=== PATIENT | female | born 2000 | race Caucasian/White ===

== ENCOUNTER 2020-01-23 10:39 | Emergency (ER) | payer SELFPAY ==
--- NOTE | 2020-01-23 11:13 | NUR ---
Patient arrived in police protective custody for a mental health screening. Pt was walking in front [place] traffic [place] [address] [place] of [place]. Pt at first was cooperative and gave a urine sample. Pt then would not allow us to do vital signs, change into a gown, or allow us to draw blood. Pt asked for a cup of water and ice. Pt was given the water and asked nicely if she would change. This RN waited outside room and patient sat in the chair in the room drinking her water. This RN notified the physician and [facility] was called at this time. Information was given to Ernie and he wanted to speak to one of the officers. He is currently getting info from them about the situation. Pt stated if she was given food, then she would let us draw her blood. KELSY Shafer сергей her blood at this time.
--- NOTE | 2020-01-23 11:18 | ED Psychosocial ---
General Stated Complaint: PSYCH EVAL Source: patient, police Exam Limitations: other (mental health) (SHIRLEY LUGO DO) History of Present Illness Date Seen by Provider: January 23, 2020 Time Seen by Provider: 11:15 Initial Comments brought in by PD because they received calls that she was walking in front of cars. They relay that she has Mental Health history. Not under arrest, but under police protective custody on arrival (SHIRLEY LUGO DO) Allergies and Home Medications Allergies Coded Allergies: No Allergy Information Available (Unverified , 01/23/20) Pt will not provide any information. Pt is not being cooperative Patient Home Medication List Home Medication List Reviewed: Yes (DANIEL LUGOEN Kedar LITTLE) Review of Systems Constitutional: no symptoms reported Respiratory: no symptoms reported Cardiovascular: no symptoms reported Psychiatric/Neurological: Emotional Problems, Other (mental health history) (SHIRLEY LUGO DO) Past Tajtfwh-[id number]-Cfmmhx Hx Past Med/Social Hx: Reviewed Nursing Past Med/Soc Hx (SHIRLEY LUGO DO) Patient Social History Recent Foreign Travel: No Contact w/Someone Who Travel: No (DANIEL LUGOEN Kedar LITTLE) Physical Exam Vital Signs - First Documented 01/23/20 12:32 Temp 36.7 Pulse 80 Resp 16 B/P (MAP) 98/43 (61) Pulse Ox 97 O2 Delivery Room Air (REYMUNDO FELIPE MD) Capillary Refill : (SHIRLEY LUGO DO) Height, Weight, BMI Height: '" Weight: lbs. oz. kg; BMI Method: General Appearance: WD/WN, no apparent distress HEENT: normal ENT inspection Respiratory: chest non-tender, lungs clear Cardiovascular: regular rate, rhythm, no JVD Gastrointestinal: non tender, soft Extremities: non-tender, no pedal edema Neurologic/Psychiatric: alert, normal mood/affect Behavior/Eye Contact: refused to answer, uncooperative Thoughts/Hallucinations: no apparent hallucination, flight of ideas, incoh erent, paranoid (MARIASTDANIEL CHRISTINEEN L ) Progress/Results/Core Measures Results/Orders Lab Results Laboratory Tests Test 01/23/20 10:48 01/23/20 11:14 Range/Units Urine Color YELLOW Urine Clarity CLEAR Urine pH 6.0 5-9 Urine Specific [place] >1.030 1.016-1.022 Urine Protein TRACE H NEGATIVE Urine Glucose (UA) NEGATIVE NEGATIVE Urine Ketones NEGATIVE NEGATIVE Urine Nitrite NEGATIVE NEGATIVE Urine Bilirubin NEGATIVE NEGATIVE Urine Urobilinogen 0.2 < = 1.0 MG/DL Urine Leukocyte Esterase NEGATIVE NEGATIVE Urine RBC (Auto) 3+ H NEGATIVE Urine RBC 5-10 H /HPF Urine WBC NONE /HPF Urine Squamous Epithelial Cells 10-25 H /HPF Urine Crystals NONE /LPF Urine Bacteria NONE /HPF Urine Casts NONE /LPF Urine Mucus MODERATE H /LPF Urine Culture Indicated NO Urine Test NEGATIVE NEGATIVE Urine Opiates Screen NEGATIVE NEGATIVE Urine Oxycodone Screen NEGATIVE NEGATIVE Urine Methadone Screen NEGATIVE NEGATIVE Urine Propoxyphene Screen NEGATIVE NEGATIVE Urine Barbiturates Screen NEGATIVE NEGATIVE Ur Tricyclic Antidepressants Screen NEGATIVE NEGATIVE Urine Phencyclidine Screen NEGATIVE NEGATIVE Urine Amphetamines Screen NEGATIVE NEGATIVE Urine Methamphetamines Screen NEGATIVE NEGATIVE Urine Benzodiazepines Screen NEGATIVE NEGATIVE Urine Cocaine Screen NEGATIVE NEGATIVE Urine Cannabinoids Screen POSITIVE H NEGATIVE White Blood Count 9.2 4.3-11.0 10^3/uL Red Blood Count 4.40 4.35-5.85 10^6/uL Hemoglobin 13.7 11.5-16.0 G/DL Hematocrit 41 35-52 % Mean Corpuscular Volume 93 80-99 FL Mean Corpuscular Hemoglobin 31 25-34 PG Mean Corpuscular Hemoglobin Concent 34 32-36 G/DL Red Cell Distribution Width 12.8 10.0-14.5 % Platelet Count 334 130-400 10^3/uL Mean Platelet Volume 9.3 7.4-10.4 FL Neutrophils (%) (Auto) 62 42-75 % Lymphocytes (%) (Auto) 29 12-44 % Monocytes (%) (Auto) 7 0-12 % Eosinophils (%) (Auto) 1 0-10 % Basophils (%) (Auto) 1 0-10 % Neutrophils # (Auto) 5.7 1.8-7.8 X 10^3 Lymphocytes # (Auto) 2.7 1.0-4.0 X 10^3 Monocytes # (Auto) 0.7 0.0-1.0 X 10^3 Eosinophils # (Auto) 0.1 0.0-0.3 10^3/uL Basophils # (Auto) 0.1 0.0-0.1 10^3/uL Sodium Level 145 135-145 MMOL/L Potassium Level 4.3 3.6-5.0 MMOL/L Chloride Level 107 98-107 MMOL/L Carbon Dioxide Level 25 21-32 MMOL/L Anion Gap 13 5-14 MMOL/L Blood Urea Nitrogen 9 7-18 MG/DL Creatinine 1.07 0.60-1.30 MG/DL Estimat Glomerular Filtration Rate > 60 BUN/Creatinine Ratio 8 Glucose Level 101 70-105 MG/DL Calcium Level 9.4 8.5-10.1 MG/DL Corrected Calcium 9.0 8.5-10.1 MG/DL Total Bilirubin 0.7 0.1-1.0 MG/DL Aspartate Amino Transf (AST/SGOT) 11 5-34 U/L Alanine Aminotransferase (ALT/SGPT) 13 0-55 U/L Alkaline Phosphatase 78 40-136 U/L Total Protein 7.0 6.4-8.2 GM/DL Albumin 4.5 3.2-4.5 GM/DL (REYMUNDO FELIPE MD) Vital Signs/I&O 01/24/20 09:58 Temp 37.2 Pulse 74 Resp 16 B/P (MAP) 108/62 (77) Pulse Ox 100 O2 Delivery Room Air (REYMUNDO FELIPE MD) Progress Progress Note : Time: 12:07 Progress Note spoke to MH screener (Reymundo) who plans to make pt "InVoluntary" status and will initiate the formalities and assist w getting pt placement. Deemed pt is a threat to herself. Transfer of care to Dr Felipe @ 0600 at shift change (01/24/2020). Pt stable and without incident. Waiting on Inpatient psychiatric placement. (SHIRLEY LUGO DO) Departure Impression Primary Impression: Acute psychosis Additional Impression: Hallucinations Disposition: 65 XFER TO PSYCH HOSP/UNIT Condition: Stable Transfer Transfer Reason: Exceeds level of care Time Spoke to Accepting Phy: 12:[address] Transfer [address] ordered to be admitted and [facility] in [facility]. They've accepted this patient. For transfer Method of Transfer: Law Enforcement (REYMUNDO FELIPE MD) Departure-Patient Inst. Referrals: MARY BARBOSA MD (PCP/Family) Primary Care Physician SHIRLEY LUGO DO January 23, 2020 11:18 REYMUNDO FELIPE MD January 24, 2020 12:17
--- NOTE | 2020-01-23 11:21 | NUR ---
Bagley, crackers, pudding, and water provided at this time.
--- NOTE | 2020-01-23 11:24 | NUR ---
Unable to do safety assessment with patient not being cooperative.
--- NOTE | 2020-01-23 11:25 | NUR ---
Ernie with [facility] called and said he is getting his zoom stuff setup and he will call me with a meeting number when he is done.
[2020-01-23 11:30] LABS: CLARITY,URINE CLEAR; COLOR,URINE YELLOW; GLUCOSE, URINE (UA) NEGATIVE (NEGATIVE); PROTEIN,URINE TRACE (NEGATIVE)
[2020-01-23 11:31] LABS: BILIRUBIN,URINE NEGATIVE (NEGATIVE); KETONES,URINE NEGATIVE (NEGATIVE); LEUKOCYTE ESTERASE ,URINE NEGATIVE (NEGATIVE); NITRITE,URINE NEGATIVE (NEGATIVE)
[2020-01-23 11:31] LABS: HEMATOCRIT 41 % (35-52); HEMOGLOBIN 13.7 G/DL (11.5-16.0); MEAN CORPUSCULAR HEMOGLOBIN 31 PG (25-34); MEAN CORPUSCULAR HGB CONC 34 G/DL (32-36); MEAN CORPUSCULAR VOLUME 93 FL (80-99); RED CELL DISTRIBUTION WIDTH 12.8 % (10.0-14.5); WHITE BLOOD COUNT 9.2 10^3/uL (4.3-11.0)
[2020-01-23 11:32] LABS: BASOPHILS # (AUTO) 0.1 10^3/uL (0.0-0.1); BASOPHILS % (AUTO) 1 % (0-10); EOSINOPHILS # (AUTO) 0.1 10^3/uL (0.0-0.3); EOSINOPHILS % (AUTO) 1 % (0-10); LYMPHOCYTES # (AUTO) 2.7 X 10^3 (1.0-4.0); LYMPHOCYTES % (AUTO) 29 % (12-44); MEAN PLATELET VOLUME 9.3 FL (7.4-10.4); MONOCYTES # (AUTO) 0.7 X 10^3 (0.0-1.0); MONOCYTES % (AUTO) 7 % (0-12); NEUTROPHILS # (AUTO) 5.7 X 10^3 (1.8-7.8); NEUTROPHILS % (AUTO) 62 % (42-75); PLATELET COUNT 334 10^3/uL (130-400)
--- NOTE | 2020-01-23 11:43 | NUR ---
Pt is currently on zoom meeting with Ernie via zoom with police lieutenant patrol.
[2020-01-23 11:44] LABS: ALANINE AMINOTRANSFERASE 13 U/L (0-55); ALBUMIN 4.5 GM/DL (3.2-4.5); ALKALINE PHOSPHATASE 78 U/L (40-136); BILIRUBIN,TOTAL 0.7 MG/DL (0.1-1.0); BUN/CREATININE RATIO 8; CALCIUM 9.4 MG/DL (8.5-10.1); CARBON DIOXIDE 25 MMOL/L (21-32); CHLORIDE 107 MMOL/L (98-107); CREATININE SERUM 1.07 MG/DL (0.60-1.30); GFR ESTIMATED > 60; GLUCOSE 101 MG/DL (70-105); POTASSIUM 4.3 MMOL/L (3.6-5.0); SODIUM 145 MMOL/L (135-145)
[2020-01-23 11:45] LABS: AMPHETAMINE SCREEN, URINE NEGATIVE (NEGATIVE); BARBITURATE SCREEN URINE NEGATIVE (NEGATIVE); BENZODIAZEPINES SCREEN URINE NEGATIVE (NEGATIVE); CANNABINOID SCREEN, URINE POSITIVE (NEGATIVE); COCAINE SCREEN URINE NEGATIVE (NEGATIVE); METHADONE STAT NEGATIVE (NEGATIVE); METHAMPHETAMINE SCREEN URINE S NEGATIVE (NEGATIVE); OPIATE SCREEN URINE NEGATIVE (NEGATIVE); OXYCODONE STAT NEGATIVE (NEGATIVE); PROPOXYPHENE STAT NEGATIVE (NEGATIVE); TRICYCLIC ANTIDEPRESSANTS SCRE NEGATIVE (NEGATIVE)
--- NOTE | 2020-01-23 11:52 | NUR ---
Pt paused psych screening with Ernie to use bathroom. Pt was escorted to bathroom by officer. Pt is back in room resuming zoom meeting.
--- NOTE | 2020-01-23 12:09 | NUR ---
After talking to Ernie with [facility], patient is going to be an involuntary psych patient for [facility]. Ernie is going to get back to me with fax number to send patient information to.
--- NOTE | 2020-01-23 12:20 | NUR ---
Patient needed to go to the bathroom again and was escorted by [employer] officer.
[2020-01-23 12:32] VITALS: BP 98/43
--- NOTE | 2020-01-23 14:12 | NUR ---
Pt is currently sleep in ER 4 on the bed.
--- NOTE | 2020-01-23 14:16 | NUR ---
Alexys with [facility] called at this time and stated Fanny was going to drop off four days worth of food for the patient. They are to be put in the patient freezer.
--- NOTE | 2020-01-23 16:35 | NUR ---
REYMUNDO FRANCO CALLED AND SHE WAS ACCEPTED TO [facility] BUT THERE ARE 15 AHEAD OF HER ON THE LIST FOR ADMITS.
--- NOTE | 2020-01-23 18:05 | NUR ---
[facility] REFERRAL IN PROCESS THRU ERICK BUT WILL NOT HAVE AN ANSWER UNTIL TOMORROW MORNING.
--- NOTE | 2020-01-23 18:06 | NUR ---
PT HAS A ZOOM COURT DATE AT 10AM TOMORROW.
--- NOTE | 2020-01-23 19:07 | NUR ---
pt. sleeping. police stenographer is here.
[2020-01-23 20:16] VITALS: BP 100/47
--- NOTE | 2020-01-23 21:32 | NUR ---
PT. CONTINUES TO SLEEP AT THIS TIME.
--- NOTE | 2020-01-23 22:25 | NUR ---
[facility] called and said they would take the pt. but she has to be a secure transport and they will take her tomorrow. The nurse to nurse report is at [phone]. Doctor Navneet has accepted the pt. The pt. was given a warm meal, and snacks as well as water. The pt. has been sleeping but was up to the restroom assisted by the military police officer.
[2020-01-23 22:54] VITALS: BP 94/59
--- NOTE | 2020-01-24 04:51 | NUR ---
pt up to the restroom. pt. requesting something to eat. pt. given a choice of what she would like from the food that was brought in for her. pt. has been very cooperative this shift.
--- NOTE | 2020-01-24 08:30 | NUR ---
Pt was walking to the bathroom and laid down in the middle of the hallway stating her knee hurt. Pt was able to get up. Pt walked down to bathroom and back to her room, escorted by [facility]. Pt stated Twin was causing her knee pain. She was trying to explain to me that it was giving out on her when she was walking and that Twin was the cause of her pain. Patient was given a bag of ice to help with her knee. She placed it underneath her knee and she has not had any problems since. Pt has not complained about her knee anymore. Pt after incident has gone to the bathroom multiple times without any limping or difficulty walking.
--- NOTE | 2020-01-24 09:06 | NUR ---
Pt is to have court at 1000. They have provided a zoom meeting number for the patient to have court virtually. Pt is laying down in her bed resting.
--- NOTE | 2020-01-24 09:12 | NUR ---
Zoom meeting for court is at [phone]
--- NOTE | 2020-01-24 09:14 | NUR ---
Attempted to call brigid reina for [id number] report, but she said she was going to have to call me back.
[2020-01-24 09:58] VITALS: BP 108/62
--- NOTE | 2020-01-24 09:58 | NUR ---
Soni called with [facility] for [id number] report. Report was given at this time. She stated that they are discharging patients and should have a bed available around 1300. If [employer] could leave around noon to get there, that would be perfect timing. Information was relayed to officer Jennifer.
--- NOTE | 2020-01-24 10:06 | NUR ---
Pt is currently on zoom meeting for court.
--- NOTE | 2020-01-24 10:15 | NUR ---
Hearing was over. Called Alex at [employer] to verify and she said the hearing was over.
--- NOTE | 2020-01-24 11:27 | NUR ---
This RN was provided the patient's grandmothers number . I spoke to Luz Maria Sanches. She said thank you for the update.
--- NOTE | 2020-01-24 11:35 | NUR ---
Grandmother stated she has been at [facility] in [place] for behavioral health, was in [place] [facility] x 2 in the last month. Grandmother works at [facility] [employer] and saw patient in ER there two weeks ago. Getting release of information from patient to obtain records from [place] and [facility]. I also had patient signing one for grandmother to be able to obtain to get updates from [facility] and from [facility].
--- NOTE | 2020-01-24 12:00 | NUR ---
Release of information forms were signed by patient to release information from behavioral health admissions from [facility] and [facility] and release it to [facility]. Fax number was [email or web address]. Also, release was signed by patient to allow Grandmother Luz Maria to have access to information at [facility].
[2020-01-24 12:10] VITALS: BP 128/71
--- NOTE | 2020-01-24 12:10 | NUR ---
Patient left at this time with [facility].
--- NOTE | 2020-01-24 12:31 | NUR ---
Called Ernie with [facility] that she is on her way to [facility].
--- NOTE | 2020-01-24 12:32 | NUR ---
Called [facility] re[facility] and spoke to Kathy to let them know that the patient is on the way with [facility].
== END 2020-01-24 12:10 ==
LOC: ER FS 10:45
DX: F23 Brief psychotic disorder (principal)
CPT/HCPCS: 36415; 80053; 80306; 81000; 84703; 85025